=== PATIENT | female | born 2005 | race Caucasian/White ===

== ENCOUNTER → 2023-05-10 | Outpatient (CLI) | payer BC | LOC: COL.RAD 06:54 | DX: R16.1 Splenomegaly, not elsewhere classified (principal) ==

== ENCOUNTER 2023-10-16 15:10 | Emergency (ER) | payer BC ==
[~2023-10-16] VITALS: Ht 167.6 cm; Wt 53.2 kg
[2023-10-16 15:12] VITALS: TEMP 98.6
[2023-10-16] MEDS ORDERED: Albuterol 90 MCG/PUFF 8 GM MDI IH ONE (16:45)
[2023-10-16 17:29] VITALS: BP 132/79; PULSE 78
[2023-10-23] MEDS ORDERED: B-121000 MCG PO (21:49)
[2023-10-23] MEDS ORDERED: PRILOTC PO (21:50)
[2023-10-23] MEDS ORDERED: PEPCID 20MG TAB20 MG PO (21:58)
== END 2023-10-16 17:30 | disposition home or self-care (01) ==
LOC: COL.ER 15:10
DX: B34.9 Viral infection, unspecified (principal); R05.9 Cough, unspecified; R06.2 Wheezing; J34.89 Other specified disorders of nose and nasal sinuses; R06.02 Shortness of breath; R09.81 Nasal congestion

== ENCOUNTER 2023-10-26 08:32 | Day surgery (SDC) | payer BC ==
[~2023-10-26] VITALS: Ht 162.6 cm; Wt 51.1 kg
[~2023-10-26 08:32] MED LIST: B-121000 MCG PO; LR 1,000 ML IV SCH; Ondansetron 4 MG/2 ML VIAL IV PRN; PEPCID 20MG TAB20 MG PO; PRILOTC PO
[2023-10-26 09:32] VITALS: BP 120/88; PULSE 72; TEMP 98.3
[2023-10-26] MEDS ORDERED: Lidocaine PF 2% (20 MG/ML) 5 ML VIAL ONE (09:46)
[2023-10-26] MEDS ORDERED: fentaNYL 50 MCG/ML 2 ML VIAL ONE (09:46)
[2023-10-26] MEDS ORDERED: Ondansetron 4 MG/2 ML VIAL ONE (10:16)
[2023-10-26 10:50] VITALS: BP 110/71; PULSE 53; TEMP 97.5
[2023-10-26 11:00] VITALS: BP 109/75; PULSE 54
[2023-10-26 11:15] VITALS: BP 107/70; PULSE 53
--- NOTE | 2023-10-26 11:35 | NUR ---
1050- PATIENT RETURNS TO [facility] [place]. PT AWAKE AND ALERT. RESPIRATIONS UNLABORED. BROUGHT RECLINER CHAIR TO THE CART AND DID A STAND PIVOT TO THE RECLINER CHAIR WITH 2:1 SBA, D/T PATIENT STILL BEING SLEEPY. PT DENIES NAUSEA OR ABD PAIN. HOOKED UP TO MONITOR AND VS OBTAINED. CALL LIGHT AT SIDE AND FAMILY PRESENT. 1100- PATIENT TOLERATING SPRITE AND CHOCOLATE ICE CREAM WITHOUT NAUSEA OR DIFFICULTY SWALLOWING. 1107- DR. SHEN IN ROOM SPEAKING WITH PATIENT. 1123- D/C INSTRUCTIONS REVIEWED WITH PATIENT. PT VERBALIZED UNDERSTANDING AND A COPY OF INSTRUCTIONS PROVIDED IN D/C FOLDER. 1128- PATIENT DRESSES SELF WITH SUPERVISION FROM MOTHER. 1135- PATIENT DISCHARGED FROM UNIT VIA W/C TO A PERSONAL VEHICLE. PT LEFT HOSPITAL IN STABLE CONDITION.
== END 2023-10-26 11:35 | disposition home or self-care (01) ==
LOC: SDCO 08:32
DX: K29.50 Unspecified chronic gastritis without bleeding (principal); K92.1 Melena; K31.89 Other diseases of stomach and duodenum; K62.89 Other specified diseases of anus and rectum; K21.9 Gastro-esophageal reflux disease without esophagitis; R13.10 Dysphagia, unspecified; Z98.890 Other specified postprocedural states; Z79.899 Other long term (current) drug therapy
CPT/HCPCS: J2405; J2704; J3010; J7120